=== PATIENT | female | born 1945 | race Caucasian/White ===

== ENCOUNTER 2024-03-15 10:11 | Emergency (ER) | payer MEDICARE ==
[~2024-03-15] VITALS: Ht 160 cm; Wt 97.0 kg
[~2024-03-15 10:11] MED LIST: ASPIRIN81 MG PO; LASIX 20 MG20 MG/TAB PO; METO50TA52 PO; PROVENTIL HFA IN; ZITHROMAX250 MG PO
[2024-03-15 10:17] VITALS: BP 143/58
[2024-03-15 10:31] VITALS: BP 130/40
[2024-03-15] MEDS ORDERED: MORPHINE SULFATE 4 MG/ML VIAL IV ONE (10:55)
[2024-03-15] MEDS ORDERED: ONDANSETRON HCl 4 MG/2 ML SDV IV ONE (10:55)
[2024-03-15 11:20] LABS: BASO% 0.7 % (0-3); EOS% 3.3 % (0-8); HEMATOCRIT 39.3 % (37.0-47.0); HEMOGLOBIN 12.5 g/dl (12.0-16.0); IMMATURE GRANULOCYTES 0.2 % (0.0-5.0); MEAN CELL VOLUME 90.3 fL CALC (80.0-100.0); MEAN CORPUSCULAR HGB 28.7 pG CALC (26.0-32.0); MEAN CORPUSCULAR HGB CONC 31.8 g/dL CAL (32.0-36.0); MONO% 6.8 % (2-13); NEUT# 4.31 thou/uL (2.00-7.15); RED BLOOD COUNT 4.35 mill/uL (4.20-5.60); RED CELL DISTRI WIDTH 12.6 % (11.5-15.5)
[2024-03-15 11:38] LABS: ALBUMIN 3.9 g/dL (3.2-5.0); BILIRUBIN, TOTAL 0.6 mg/dL (0.02-1.3); CREATININE 0.9 mg/dL (0.5-1.0); POTASSIUM 4.6 mmol/l (3.5-5.1); TOTAL PROTEIN 6.1 g/dL (6.3-8.2)
[2024-03-15] MEDS ORDERED: HYDROCO/APAP1 TA9 PO (12:20)
[2024-03-15] MEDS ORDERED: METHOCARBAMOL500 MG PO (12:24)
[2024-03-15] MEDS ORDERED: METHOCARBAMOL 500 MG/TAB PO ONE (12:25)
[2024-03-15 13:19] VITALS: BP 130/40
== END 2024-03-15 13:22 | disposition home or self-care (01) ==
LOC: ED 10:11
PROVIDERS: Family Medicine
PROC: 2W39X1Z Immobilization of Left Upper Extremity using Splint (ICD-10-PCS; principal; 2024-03-15)
DX: S42.332A Displaced oblique fracture of shaft of humerus, left arm, initial encounter for closed fracture (principal); I10 Essential (primary) hypertension; Z86.73 Personal history of transient ischemic attack (TIA), and cerebral infarction without residual deficits; W01.0XXA Fall on same level from slipping, tripping and stumbling without subsequent striking against object, initial encounter; Y92.481 Parking lot as the place of occurrence of the external cause
CPT/HCPCS: J2405